=== PATIENT | female | born 1975 | race Caucasian/White ===

== ENCOUNTER 2016-11-06 04:01 | Inpatient (IN) | payer OTHER ==
[~2016-11-06] VITALS: Ht 160 cm; Wt 52.2 kg
[2016-11-06 04:37] LABS: BASOPHIL % 0.9 % (0-2); PLATELET COUNT 284 x10^3mcL (130-400); RED CELL DISTRIBUTION WIDTH 13.2 % (11.5-14.5)
[2016-11-06 04:46] LABS: CARBON DIOXIDE 20.3 mmol/L (21-32); CHLORIDE SERUM 107 mmol/L (98-107); CREATININE SERUM 0.8 mg/dL (0.6-1.0); GFR1 > 60 mL/min; GLUCOSE SERUM 129 mg/dL (74-106); SODIUM SERUM 144 mmol/L (136-145)
[2016-11-06 04:52] LABS: ALBUMIN 4.5 g/dL (3.4-5.0); ALKALINE PHOSPHATASE 74 U/L (46-116); ALT/SGPT 18 U/L (14-59); AMYLASE 72 U/L (25-115); AST/SGOT 14 U/L (15-37); BILIRUBIN TOTAL 0.5 mg/dL (0.20-1.00); LIPASE 383 IU/L (73-393); TOTAL PROTEIN, SERUM 8.4 g/dL (6.4-8.2)
[2016-11-06 10:38] LABS: T3 TOTAL 0.81 ng/mL
[2016-11-06 10:39] LABS: FREE T4 1.19 ng/dL (0.76-1.46); T4(THYROXINE) 8.7 ug/dL (4.7-13.3)
[2016-11-06 12:45] VITALS: BP 125/66
[2016-11-06 12:50] VITALS: BP 125/66
[2016-11-06 12:52] VITALS: Ht 160 cm; Wt 52.2 kg
[2016-11-06 18:35] VITALS: BP 122/75
[2016-11-06 21:51] VITALS: BP 129/75
[2016-11-07 05:32] VITALS: BP 133/76
[2016-11-07 06:50] LABS: BASOPHIL % 0.4 % (0-2); PLATELET COUNT 194 x10^3mcL (130-400); RED CELL DISTRIBUTION WIDTH 13.4 % (11.5-14.5)
[2016-11-07 07:32] LABS: CALCIUM 7.9 mg/dL (8.5-10.1); CARBON DIOXIDE 20.6 mmol/L (21-32); CHLORIDE SERUM 112 mmol/L (98-107); CREATININE SERUM 0.7 mg/dL (0.6-1.0); GFR1 > 60 mL/min; GLUCOSE SERUM 81 mg/dL (74-106); PHOSPHOROUS 2.4 mg/dL (2.5-4.9); POTASSIUM SERUM 3.1 mmol/L (3.5-5.1); SODIUM SERUM 146 mmol/L (136-145)
[2016-11-07 18:00] VITALS: BP 114/52; BP 133/86
[2016-11-07 19:19] LABS: UA SPECIFIC GRAVITY 1.025 (1.005-1.035); microscopic required? YES; urine erythrocyte 1+ (NEGATIVE)
[2016-11-07 19:30] LABS: AMPHETAMINE QUAL UR NONE DETECTED (NEG <=1000)
[2016-11-07 22:32] VITALS: BP 155/83
[2016-11-08 06:50] VITALS: BP 124/79
[2016-11-08 07:55] VITALS: BP 120/82
[2016-11-08 17:17] VITALS: BP 146/88
[2016-11-08 21:00] VITALS: BP 99/67
[2016-11-08 23:25] LABS: AMYLASE 93 U/L (25-115); LIPASE 609 IU/L (73-393)
[2016-11-09 05:21] VITALS: BP 132/79
[2016-11-09 06:05] LABS: BASOPHIL % 0.4 % (0-2); PLATELET COUNT 201 x10^3mcL (130-400); RED CELL DISTRIBUTION WIDTH 12.8 % (11.5-14.5)
[2016-11-09 06:06] LABS: ALBUMIN 3.5 g/dL (3.4-5.0); ALKALINE PHOSPHATASE 52 U/L (46-116); ALT/SGPT 18 U/L (14-59); AST/SGOT 12 U/L (15-37); BILIRUBIN TOTAL 0.71 mg/dL (0.20-1.00); CALCIUM 8.6 mg/dL (8.5-10.1); CARBON DIOXIDE 28.6 mmol/L (21-32); CHLORIDE SERUM 108 mmol/L (98-107); CREATININE SERUM 0.6 mg/dL (0.6-1.0); GFR1 > 60 mL/min; GLUCOSE SERUM 90 mg/dL (74-106); PHOSPHOROUS 3.3 mg/dL (2.5-4.9); POTASSIUM SERUM 4.2 mmol/L (3.5-5.1); SODIUM SERUM 145 mmol/L (136-145); TOTAL PROTEIN, SERUM 6.6 g/dL (6.4-8.2)
[2016-11-09 09:09] VITALS: BP 116/77
[2016-11-09] MEDS ORDERED: NOR10T PO (09:23)
[2016-11-09] MEDS ORDERED: ZOFRAN8 MG PO (09:24)
[2016-11-09] MEDS ORDERED: IMODIUM A-D2 M3 PO (09:32)
[2016-11-09 10:08] VITALS: BP 116/77
== END 2016-11-09 10:30 | disposition home or self-care (01) | DRG 247 ==
LOC: ED 04:01 → MU 09:38 → DU 09:38 → MU 23:39
PROVIDERS: Emergency Medicine; ADMIT Family Medicine
DX: K56.7 Ileus, unspecified (principal); E87.0 Hyperosmolality and hypernatremia; E05.90 Thyrotoxicosis, unspecified without thyrotoxic crisis or storm; K52.9 Noninfective gastroenteritis and colitis, unspecified; F17.210 Nicotine dependence, cigarettes, uncomplicated; E78.5 Hyperlipidemia, unspecified; F43.0 Acute stress reaction; Z68.20 Body mass index [BMI] 20.0-20.9, adult; E87.6 Hypokalemia; E03.9 Hypothyroidism, unspecified; E83.39 Other disorders of phosphorus metabolism
CPT/HCPCS: 80307; 83880; 84439; 87046; 87046-59; C9113; J1170; J2270; J2405; J2765; J3010; J3480; J3490; J7030; Q0092; Q9967

== ENCOUNTER 2018-09-20 00:22 | Inpatient (IN) | payer OTHER ==
[~2018-09-20] VITALS: Ht 160 cm; Wt 56.7 kg
[~2018-09-20 00:22] MED LIST: IMODIUM A-D2 M3 PO; NOR10T PO; ZOFRAN8 MG PO
[2018-09-20 00:59] LABS: BASOPHIL % 0.1 % (0-2); PLATELET COUNT 201 x10^3mcL (130-400); RED CELL DISTRIBUTION WIDTH 12.9 % (11.5-14.5)
[2018-09-20 01:12] LABS: CALCIUM 9.3 mg/dL (8.5-10.1); CARBON DIOXIDE 23.8 mmol/L (21-32); CHLORIDE SERUM 106 mmol/L (98-107); CREATININE SERUM 0.8 mg/dL (0.6-1.0); GFR1 > 60 mL/min; GLUCOSE SERUM 125 mg/dL (74-106); POTASSIUM SERUM 3.2 mmol/L (3.5-5.1); SODIUM SERUM 142 mmol/L (136-145)
[2018-09-20 01:17] LABS: ALBUMIN 3.6 g/dL (3.4-5.0); ALKALINE PHOSPHATASE 75 U/L (46-116); ALT/SGPT 14 U/L (14-59); AST/SGOT 19 U/L (15-37); BILIRUBIN TOTAL 0.4 mg/dL (0.20-1.00); LIPASE 112 IU/L (73-393); TOTAL PROTEIN, SERUM 7.5 g/dL (6.4-8.2)
[2018-09-20 03:30] LABS: MAGNESIUM 1.8 mg/dL (1.8-2.4); PHOSPHOROUS 2.4 mg/dL (2.5-4.9)
[2018-09-20 03:36] LABS: CHOLESTEROL/HDL RATIO 3.8
[2018-09-20 05:35] VITALS: BP 120/74
[2018-09-20 06:39] LABS: CALCIUM 8.7 mg/dL (8.5-10.1); CHLORIDE SERUM 108 mmol/L (98-107); CREATININE SERUM 0.7 mg/dL (0.6-1.0); GFR1 > 60 mL/min; GLUCOSE SERUM 109 mg/dL (74-106); MAGNESIUM 1.9 mg/dL (1.8-2.4); PHOSPHOROUS 2.6 mg/dL (2.5-4.9); POTASSIUM SERUM 3.7 mmol/L (3.5-5.1); SODIUM SERUM 142 mmol/L (136-145)
[2018-09-20 07:08] LABS: BASOPHIL % 0.3 % (0-2); PLATELET COUNT 196 x10^3mcL (130-400); RED CELL DISTRIBUTION WIDTH 13.2 % (11.5-14.5)
[2018-09-20 09:30] VITALS: BP 116/68
[2018-09-20 10:45] LABS: AMPHETAMINE QUAL UR POSITIVE (See below)
[2018-09-20 10:58] LABS: microscopic required? YES; urine erythrocyte 3+ (NEGATIVE)
[2018-09-20 16:39] VITALS: BP 144/87
[2018-09-20 20:59] VITALS: BP 143/78
[2018-09-21 05:26] VITALS: BP 138/76
[2018-09-21 05:59] LABS: BASOPHIL % 0.1 % (0-2); PLATELET COUNT 191 x10^3mcL (130-400); RED CELL DISTRIBUTION WIDTH 12.1 % (11.5-14.5)
[2018-09-21 06:17] LABS: CALCIUM 8.1 mg/dL (8.5-10.1); CARBON DIOXIDE 23.9 mmol/L (21-32); CHLORIDE SERUM 106 mmol/L (98-107); CREATININE SERUM 0.6 mg/dL (0.6-1.0); GFR1 > 60 mL/min; GLUCOSE SERUM 104 mg/dL (74-106); MAGNESIUM 1.9 mg/dL (1.8-2.4); PHOSPHOROUS 2.7 mg/dL (2.5-4.9); POTASSIUM SERUM 3.2 mmol/L (3.5-5.1); SODIUM SERUM 139 mmol/L (136-145)
[2018-09-21 08:59] VITALS: BP 126/70
[2018-09-21 18:17] VITALS: BP 130/77
[2018-09-21 20:35] VITALS: BP 139/79
[2018-09-22 05:42] VITALS: BP 127/83
[2018-09-22 06:08] LABS: BASOPHIL % 0.2 % (0-2); PLATELET COUNT 214 x10^3mcL (130-400); RED CELL DISTRIBUTION WIDTH 11.9 % (11.5-14.5)
[2018-09-22 06:35] LABS: CALCIUM 8.1 mg/dL (8.5-10.1); CARBON DIOXIDE 21.4 mmol/L (21-32); CHLORIDE SERUM 106 mmol/L (98-107); CREATININE SERUM 0.5 mg/dL (0.6-1.0); GFR1 > 60 mL/min; GLUCOSE SERUM 90 mg/dL (74-106); MAGNESIUM 1.9 mg/dL (1.8-2.4); PHOSPHOROUS 2.6 mg/dL (2.5-4.9); SODIUM SERUM 140 mmol/L (136-145)
[2018-09-22 09:11] VITALS: BP 91/66
== END 2018-09-22 11:24 | disposition left against medical advice (07) | DRG 249 ==
LOC: ED 00:22 → MU 03:24
PROVIDERS: Emergency Medicine; ADMIT General Practice
DX: A08.4 Viral intestinal infection, unspecified (principal); E83.39 Other disorders of phosphorus metabolism; E86.0 Dehydration; E87.6 Hypokalemia; E78.5 Hyperlipidemia, unspecified; F15.10 Other stimulant abuse, uncomplicated; D72.829 Elevated white blood cell count, unspecified; F17.210 Nicotine dependence, cigarettes, uncomplicated; Z53.21 Procedure and treatment not carried out due to patient leaving prior to being seen by health care provider; Z68.22 Body mass index [BMI] 22.0-22.9, adult
CPT/HCPCS: 87046; 87046-59; J1630; J1885; J2270; J2405; J2765; J3480; J3490; J7030; Q0092

== ENCOUNTER 2018-09-22 13:59 | Inpatient (IN) | payer OTHER ==
[~2018-09-22] VITALS: Ht 160 cm; Wt 50.0 kg
[2018-09-22 14:11] VITALS: Ht 160 cm; Wt 50.0 kg
[2018-09-22 16:37] LABS: CALCIUM 8.7 mg/dL (8.5-10.1); CARBON DIOXIDE 23.6 mmol/L (21-32); CHLORIDE SERUM 106 mmol/L (98-107); CREATININE SERUM 0.7 mg/dL (0.6-1.0); GFR1 > 60 mL/min; GLUCOSE SERUM 97 mg/dL (74-106); POTASSIUM SERUM 3.1 mmol/L (3.5-5.1); SODIUM SERUM 140 mmol/L (136-145)
[2018-09-22 16:42] LABS: ALBUMIN 3.5 g/dL (3.4-5.0); ALKALINE PHOSPHATASE 75 U/L (46-116); ALT/SGPT 24 U/L (14-59); AST/SGOT 16 U/L (15-37); BILIRUBIN TOTAL 0.5 mg/dL (0.20-1.00); CHOLESTEROL 183 mg/dL (<200); TOTAL PROTEIN, SERUM 7.3 g/dL (6.4-8.2)
[2018-09-22 16:47] LABS: BASOPHIL % 0.3 % (0-2); PLATELET COUNT 205 x10^3mcL (130-400)
[2018-09-22 19:36] VITALS: BP 128/84
[2018-09-22 19:49] LABS: MAGNESIUM 2.1 mg/dL (1.8-2.4)
[2018-09-22 19:54] LABS: T3 TOTAL 0.9 ng/mL
[2018-09-22 20:01] LABS: FREE T4 0.88 ng/dL (0.76-1.46); FREE THYROXINE INDEX 2.3 ug/dL (1.4-4.5); T4(THYROXINE) 7.1 ug/dL (4.7-13.3)
[2018-09-23 05:38] VITALS: BP 134/84
[2018-09-23 06:51] LABS: BASOPHIL % 0.1 % (0-2); PLATELET COUNT 190 x10^3mcL (130-400); RED CELL DISTRIBUTION WIDTH 12.8 % (11.5-14.5)
[2018-09-23 06:58] LABS: CALCIUM 7.8 mg/dL (8.5-10.1); CARBON DIOXIDE 18.9 mmol/L (21-32); CHLORIDE SERUM 108 mmol/L (98-107); CREATININE SERUM 0.6 mg/dL (0.6-1.0); GFR1 > 60 mL/min; GLUCOSE SERUM 78 mg/dL (74-106); PHOSPHOROUS 2.4 mg/dL (2.5-4.9); POTASSIUM SERUM 3.2 mmol/L (3.5-5.1); SODIUM SERUM 138 mmol/L (136-145)
[2018-09-23 08:56] VITALS: BP 115/67
[2018-09-23 14:00] VITALS: BP 120/66
[2018-09-23 16:55] VITALS: BP 117/67
== END 2018-09-23 20:27 | disposition left against medical advice (07) | DRG 812 ==
LOC: ED 13:59 → DU 18:29 → EDBEDREQ 18:30 → DU 19:31
PROVIDERS: Specialist; ADMIT General Practice
DX: T43.621A Poisoning by amphetamines, accidental (unintentional), initial encounter (principal); N17.0 Acute kidney failure with tubular necrosis; G92 Toxic encephalopathy; K65.9 Peritonitis, unspecified; E86.0 Dehydration; G90.8 Other disorders of autonomic nervous system; K52.9 Noninfective gastroenteritis and colitis, unspecified; E87.6 Hypokalemia; D72.829 Elevated white blood cell count, unspecified; F11.10 Opioid abuse, uncomplicated; T40.2X1A Poisoning by other opioids, accidental (unintentional), initial encounter; E78.5 Hyperlipidemia, unspecified; Z53.21 Procedure and treatment not carried out due to patient leaving prior to being seen by health care provider; F15.10 Other stimulant abuse, uncomplicated; F17.210 Nicotine dependence, cigarettes, uncomplicated; Z98.891 History of uterine scar from previous surgery; Y92.89 Other specified places as the place of occurrence of the external cause
CPT/HCPCS: 84439; 87046; 87046-59; G0480; J1885; J1956; J2060; J2270; J2405; J2765; J3010; J3480; J3490; J7030; Q0092